=== PATIENT | female | born 1945 | race Caucasian/White ===

== ENCOUNTER → 2017-02-04 | Day surgery (SDC) | payer OTHER ==
[2017-01-30 10:14] VITALS: Ht 167.6 cm; Wt 111.4 kg
[~2017-02-04] VITALS: Ht 167.6 cm; Wt 111.4 kg
[~2017-02-04] MED LIST: ASPI-232 PO; CALC8.5C PO; CHOL2000 PO; CYAN10005 PO; DVN80 PO; FEXO1TAB49 PO; FLUT0.15 INH; GLC/500 PO; LANS30CA63 PO; MELO15TA4 PO; MULT-506 PO; POTA10CA28 PO; PROPOFOL IV EMULSION 10 MG/ML 20 ML VIAL IV ONE; SIMV20TA2 PO; SODIUM CHLORIDE 0.9% 500ML 500 ML IV ONE
--- NOTE | 2017-02-04 09:48 | Endo History and Physical ---
History & Physical Date of Service: February 04, 2017. Chief Complaint: screening Referring Physician: Dr. Mishel Lopez History of Present Illness 71 yo CF who presents for screening colonoscopy. Past Surgical History Hx Cardiac Surgery: No Hx Internal Defibrillator: No Hx Pacemaker: No Hx Abdominal Surgery: Yes (OOPHERECTOMY) Hx of Implantable Prosthesis: No Hx Post-Op Nausea and Vomiting: Yes Hx Cancer Surgery: No Hx Thoracic Surgery: No Hx Orthopedic: No Hx Urinary Tract Surgery: No Family History Polyp Social History Smoking Status: Never Smoker Hx Substance Use: No Hx Alcohol Use: Yes (OCCASIONALLY) Allergies Coded Allergies: Broccoli (Verified Allergy, Unknown, DOES NOT TOLERATE, 01/30/17) Lettuce (Verified Allergy, Unknown, DOES NOT TOLERATE, 01/30/17) NO KNOWN DRUG ALLERGIES (Verified Allergy, Unknown, ., 01/30/17) Uncoded Allergies: EGGS (Allergy, Unknown, DOES NOT TOLERATE, 01/30/17) Current Medications Reported Home Medications Medications Dose Route/Sig Max Daily Dose Days Date Category Micro-K Ext Rel (Potassium Chloride) 10 Meq Capcr 90 Meq PO BID 02/04/17 Reported Mobic (Meloxicam) 15 Mg Tab 15 Mg PO QPM 01/30/17 Reported Flonase Allergy Relief (Fluticasone Propionate (Nasal)) 50 Mcg/Act Spr 1 [place] INH DAILY PRN 01/30/17 Reported Multivitamin (Multivitamins) Tab 1 Tab PO QPM 06/14/16 Reported Prevacid (Lansoprazole) 30 Mg Cap 1 Cap PO QPM 30 06/14/16 Reported Viactiv (Calcium W/ Vitamins D & K) 1 Chw Chw 1 Ea PO BID 06/14/16 Reported Aspir-81 (Aspirin) 81 Mg Tab 1 Tab PO QAM 30 06/14/16 Reported Bren Allergy (Fexofenadine Hcl) 180 Mg Tab 1 Tab PO QPM 30 06/14/16 Reported Vitamin D3 (Cholecalciferol) 2,000 Unit Cap 1 Cap PO QPM 30 06/14/16 Reported Vitamin B-12 (Cyanocobalamin) 1,000 Mcg Tab 1,000 Mcg PO QPM 06/14/16 Reported Diovan (Valsartan) 80 Mg Tab 1 Tab PO QPM 30 06/14/16 Reported Glucophage (Metformin Hcl) 500 Mg Tab 500 Mg PO BID 06/14/16 Reported Zocor (Simvastatin) 20 Mg Tab 1 Tab PO QPM 90 06/14/16 Reported Vital Signs Weight (Kilograms): 111.36 Height (Feet): 5 Height (Inches): 6 Date Time Temp Pulse Resp B/P Pulse Ox O2 Delivery O2 Flow Rate FiO2 02/04/17 09:41 36.6 78 20 182/91 96 Room Air Physical Exam General Appearance: WD/WN, no apparent distress Respiratory/Chest: Auscultation: breath sounds normal Cardiovascular: Heart Auscultation: RRR Abdomen: Bowel Sounds: normal Inspection & Palpation: soft, non-distended, no tenderness, guarding & rebound Assessment and Plan Assessment: 71 yo CF who presents for screening colonoscopy. Plan: Proceed with colonoscopy.
--- NOTE | 2017-02-04 10:42 | GI REPORT ---
Procedure Date: 02/04/2017 10:05 AM THIS REPORT HAS BEEN AMENDED Addendum Number: 1 Addendum Date: 02/17/2017 8:14:44 AM No specimens were collected during this procedure, and therefore, no pathology is pending. Repeat colonoscopy in 10 years. Procedure: Colonoscopy Indications: Screening for colorectal malignant neoplasm Medicines: Monitored Anesthesia Care Complications: No immediate complications. Estimated Blood Loss: Estimated blood loss: none. Procedure: Pre-Anesthesia Assessment: - Prior to the procedure, a History and Physical was performed, and patient medications and allergies were reviewed. The patient's tolerance of previous anesthesia was also reviewed. The risks and benefits of the procedure and the sedation options and risks were discussed with the patient. All questions were answered, and informed consent was obtained. Prior Anticoagulants: The patient has taken aspirin, last dose was 1 day prior to procedure. ASA Grade Assessment: II - A patient with mild systemic disease. After reviewing the risks and benefits, the patient was deemed in satisfactory condition to undergo the procedure. After I obtained informed consent, the scope was passed under direct vision. Throughout the procedure, the patient's blood pressure, pulse, and oxygen saturations were monitored continuously. The scope was introduced through the anus and advanced to the terminal ileum. The colonoscopy was performed without difficulty. The patient tolerated the procedure well. The quality of the bowel preparation was good. The terminal ileum, ileocecal valve, appendiceal orifice, and rectum were photographed. Findings: Multiple small-mouthed diverticula were found in the sigmoid colon. Non-bleeding internal hemorrhoids were found during retroflexion. The hemorrhoids were small. Impression: - Diverticulosis in the sigmoid colon. - Non-bleeding internal hemorrhoids. - No specimens collected. Recommendation: - Resume previous diet. - Continue present medications. - Repeat colonoscopy for surveillance based on pathology results. - Return to primary care physician as previously scheduled. Shawn Alexandre, DO 02/04/2017 10:41:33 AM This report has been signed electronically. Note Initiated On: 02/04/2017 10:05 AM I attest to the content of the Intraoperative Record and orders documented therein, exceptions below Shawnheidi Alexandre, DO 02/17/2017 8:15:33 AM This report has been signed electronically.
--- NOTE | 2017-02-04 10:47 | Anesthesiology Progress Note ---
Anesthesia Post Op Note Date & Time February 04, 2017 at 10:47 Vital Signs Pain Intensity: 0 Vital Signs Past 12 Hours Date Time Temp Pulse Resp B/P Pulse Ox O2 Delivery O2 Flow Rate FiO2 02/04/17 09:41 36.6 78 20 182/91 96 Room Air Notes Mental Status: alert / awake / arousable, participated in evaluation Pt Amnestic to Procedure: Yes Nausea / Vomiting: adequately controlled Pain: adequately controlled Airway Patency, RR, SpO2: stable & adequate BP & HR: stable & adequate Hydration State: stable & adequate Anesthetic Complications: no major complications apparent The patient's vitals are all stable in recovery.
[2017-02-04 11:13] VITALS: BP 154/70; PULSE 71; O2SAT 96
--- NOTE | 2017-02-04 11:16 | Discharge Instructions ---
Endoscopy Patient Instructions Date / Procedure(s) Performed February 04, 2017. Colonoscopy Allergy Information Coded Allergies: Broccoli (Verified Allergy, Unknown, DOES NOT TOLERATE, 01/30/17) Lettuce (Verified Allergy, Unknown, DOES NOT TOLERATE, 01/30/17) NO KNOWN DRUG ALLERGIES (Verified Allergy, Unknown, ., 01/30/17) Uncoded Allergies: EGGS (Allergy, Unknown, DOES NOT TOLERATE, 01/30/17) Discharge Date / Findings February 04, 2017. Diverticulosis Internal hemorrhoids Medication Instructions Stopped Medication(s): stopped Metformin Friday,last ASA 2199 last night Provider Instructions Activity Restrictions - No exercising or heavy lifting for 24 hours. - Do not drink alcohol the day of the procedure. - Do not drive a car or operate machinery until the day after the procedure. - Do not make any important decisions or sign important papers in 24 hours after the procedure. Following Day: - Return to full activity which may include returning to work/school. Diet Start your diet with liquids and light foods (jello, soup, juice, toast). Then eat your usual diet if not nauseated. Treatment For Common After Affects For mild abdominal pain, bloating, or excessive gas: - Rest - Eat lightly - Lie on right side Follow-Up Information Follow-up with Dr. Mishel Lopez as scheduled Anesthesia Information What You Should Know You have had a procedure that required some medicine to reduce anxiety and discomfort. This treatment is called moderate sedation. After receiving the treatment, you may be sleepy, but you will be able to breathe on your own. The effects of the treatment may last for several hours. Follow these instructions along with Activity/Diet recommendations noted above: * Do NOT do anything where dizziness or clumsiness would be dangerous. * Rest quietly at home today, then you can be up and about tomorrow. * Have a responsible person stay with you the rest of today. * You may have had an I.V. today. If so, you may take the dressing off later today. Recommendations Call your doctor if: * Trouble breathing * Continuous vomiting for more than 24 hours * Temperature above 101 degrees * Severe abdominal pain or bloating * Pain not relieved by pain medicine ordered * There is increased drainage or redness from any incision * A large amount of rectal bleeding greater than 2-3 tablespoons. (If you had a polyp/s removed or have hemorrhoids, a small amount of blood - from the rectum is to be expected.) * You have any unanswered questions or concerns. IN THE EVENT OF A SERIOUS EMERGENCY, GO TO THE NEAREST EMERGENCY ROOM Your discharge instructions were prepared by provider Shawn Alexandre. Patient Instructions Signature Page Dayana Finch Patient (or Guardian) Signature/Date: I have read and understand the instructions given to me by my caregivers. Caregiver/RN/Doctor Signature/Date: The above-named patient and/or guardian has received patient instructions on this date. + Original Patient Signature Page (only) stays with chart. Please make copy for patient.
== END | disposition home or self-care (01) ==
LOC: C.GI 09:15
PROVIDERS: ATTEND Internal Medicine
DX: Z12.11 Encounter for screening for malignant neoplasm of colon (principal); K57.30 Diverticulosis of large intestine without perforation or abscess without bleeding; K64.8 Other hemorrhoids; Z83.71 Family history of colonic polyps; I10 Essential (primary) hypertension; E11.9 Type 2 diabetes mellitus without complications; K21.9 Gastro-esophageal reflux disease without esophagitis; M19.90 Unspecified osteoarthritis, unspecified site; Z91.018 Allergy to other foods; Z79.82 Long term (current) use of aspirin; E66.9 Obesity, unspecified; Z68.39 Body mass index [BMI] 39.0-39.9, adult; Z90.89 Acquired absence of other organs; Z98.890 Other specified postprocedural states